=== PATIENT | female | born 1935 | race Caucasian/White ===

== ENCOUNTER 2018-04-28 12:56 | Outpatient (CLI) | payer MEDICARE, BC | END 2018-04-28 12:57 | disposition home or self-care (01) | LOC: BICMAMMO 12:56 | PROVIDERS: ATTEND Internal Medicine | DX: Z12.31 Encounter for screening mammogram for malignant neoplasm of breast (principal) | CPT/HCPCS: 77063; 77067 ==

== ENCOUNTER 2018-09-20 11:32 | Outpatient (CLI) | payer MEDICARE, BC ==
--- NOTE | 2018-09-20 12:22 | RAD ---
PA AND LATERAL CHEST: History: Dyspnea. Comparison: 01-15-16 FINDINGS: Heart size is within normal limits. There are atherosclerotic changes of the aorta. Pleural based sca rring in the right upper lobe is stable. Post-operative changes of both shoulders are seen. IMPRESSION: Chronic lung change. Stable exam. POS: TPC
== END 2018-09-20 11:33 | disposition home or self-care (01) ==
LOC: RAD 11:32
PROVIDERS: ATTEND Internal Medicine
DX: R06.00 Dyspnea, unspecified (principal)
CPT/HCPCS: 71046

== ENCOUNTER 2019-03-10 06:12 | Inpatient (IN) | payer MEDICARE, BC ==
[2019-03-10] MEDS ORDERED: Morphine 4 MG/ML VIAL ONE (06:38)
[2019-03-10] MEDS ORDERED: Ondansetron PF 4 MG/2 ML Vial ONE (06:38)
[2019-03-10 06:39] LABS: #Basophils 0.1 thou/uL (0.0-0.2); #Lymphocytes 1.5 thou/uL (1.20-3.40); #Monocytes 0.7 thou/uL (0.11-0.59); #Neutrophils 13.4 thou/uL (1.40-6.50); %Basophils 0.4 % (0.0-1.0); %Eosinophils 0.1 % (0.0-10.0); %Lymphocytes 9.5 % (21.0-51.0); %Monocytes 4.3 % (0.0-10.0); %Neutrophils 85.8 % (42.0-75.0); Hemoglobin 16.7 g/dL (12.0-16.0); Mean Corpuscular HGB CONC 32.8 g/dL (32.0-36.0); Mean Corpuscular Hemoglobin 28.6 pg (27.0-31.0); Mean Corpuscular Volume 87.3 fL (78.0-98.0); Mean Platelet Volume 5.7 fL (7.4-10.4); Platelet Count 290 thou/uL (130-400); RBC Distribution Width 12.3 % (11.5-14.5); Red Blood Cell (RBC) Count 5.84 mill/uL (4.20-5.40); White Blood Cell (WBC) Count 15.6 thou/uL (4.8-10.8)
[2019-03-10 06:57] LABS: ALT (SGPT) 10 U/L (8-55); AST (SGOT) 17 U/L (5-34); Albumin 4.8 g/dL (3.4-4.8); Alkaline Phosphatase 71 U/L (40-150); Anion Gap 17 mmol/L (10-20); BUN (Urea Nitrogen) 20 mg/dL (9.8-20.1); Bilirubin, Total 0.5 mg/dL (0.2-1.2); CK (CPK) 30 U/L (29-168); Calc. Creatinine Clearance 0 mL/min (70-130); Carbon Dioxide 27 mmol/L (23-31); Chloride 100 mmol/L (98-107); Estimated GFR-MDRD 64; Globulin 3.1 g/dL (2.4-3.5); Glucose 190 mg/dL (83-110); Lipase 26 U/L (8-78); Protein, Total 7.9 g/dL (6.0-8.3); Sodium 140 mmol/L (136-145)
--- NOTE | 2019-03-10 07:46 | CT ---
CT Abdomen Pelvis W Con: 03/10/2019 6:31 AM CLINICAL INFORMATION: Bilious vomiting COMPARISON: None. TECHNIQUE: Multiple contiguous axial images were obtained and a CT of the abdomen and pelvis with IV contrast. C oronal reformats were performed. FINDINGS: Lower Chest: within normal limits. Abdomen: Liver: within normal limits. Bile Ducts: Enlargement of the common bile duct and central intrahepatic biliary tree may be a reserv oir effect from prior cholecystectomy. The common bile duct measures 1.4 cm in greatest dimension. Gallbladder: Surgically absent Pancreas: within normal limits. Spleen: within normal limits. Adrenals: within normal limits. Kidneys: Nonobstructing 5 mm left renal calcification. No right renal abnormality. Pelvis: Reproductive Organs: Status post hysterectomy. Ureters: within normal limits. Bladder: within normal limits. Peritoneum: No free air. There is a small amount of free fluid in the pelvis. Bowel: Scattered diverticula in the colon. There is an anastomotic staple line in the sigmoid colon. The proximal small bowel loops are dilated up to 4.5 cm in size. There appears to be a transition point to decompressed small bowel loops in the right lower quadrant of the abdomen. Mesentery and Retroperitoneum: No enlarged mesenteric or retroperitoneal lymph nodes. Vessels: Atherosclerotic calcifications. Abdominal Wall: within normal limits. Bones: Degenerative changes in the spine. IMPRESSION: 1. Dilated small bowel loops with apparent transition point in the right upper quadrant of the abdome n. This may be secondary to a partial or complete small bowel obstruction. 2. Diverticulosis 3. Nonobstructing left renal calcification 4. Biliary dilatation may be a reservoir effect from prior cholecystectomy. Correlate with LFTs.
[2019-03-10] MEDS ORDERED: Lidocaine Viscous Sol 2% 15 ml UD Cup ONE (08:02)
[2019-03-10] MEDS ORDERED: Ondansetron ODT 4 MG TAB SL PRN (08:25)
[2019-03-10] MEDS ORDERED: Lactated Ringer's 1,000 ML IV SCH (08:25)
[2019-03-10] MEDS ORDERED: Ondansetron PF 4 MG/2 ML Vial IVP PRN ×2 (08:25→10:50)
[2019-03-10 08:31] LABS: Bilirubin Negative (Negative); Blood, Urine Negative (Negative); Clarity Clear (Clear); Glucose, Urine (Dipstick) Negative (Negative); Leukocyte Trace (Negative); Nitrite Negative (Negative); Protein, Urine (Dipstick) Negative (Neg-Trace); Urobilinogen 0.2 mg/dL (Less than 2)
[2019-03-10 08:40] LABS: Bacteria/HPF None Seen HPF (None Seen); Epithelial Cast None Seen LPF (None Seen); RBC/HPF 0-3 HPF (0-3); Squamous Epithelial 0-3 HPF (0-3); WBC/HPF 0-3 HPF (0-3)
--- NOTE | 2019-03-10 08:54 | RAD ---
EXAM: Single view of the abdomen HISTORY: NG tube placement COMPARISON: 05/13/2007 FINDINGS: Single view of the abdomen shows a nonspecific, nonobstructive bowel gas pattern. An NG tub e is seen in the left upper quadrant of the abdomen with contrast in the stomach. Contrast is also seen in both renal collecting systems from recent contrast examination. Cholecystectomy clips are see n. The bones are unremarkable. IMPRESSION: NG tube located in the stomach.
[2019-03-10] MEDS ORDERED: Morphine 2 MG/ML SYRINGE SLOW IVP PRN (10:50)
[2019-03-10] MEDS ORDERED: Sodium Chloride 0.65% Nasal 44 ML BOT EA NARE PRN (10:50)
[2019-03-10] MEDS ORDERED: hydrALAZINE 20 MG/ML VIAL SLOW IVP PRN (10:50)
[2019-03-10] MEDS ORDERED: Bisacodyl 10 MG SUPP PR PRN (10:50)
[2019-03-10] MEDS ORDERED: Acetaminophen 650 MG Suppository PR PRN (10:50)
[2019-03-10] MEDS ORDERED: Cepastat Lozenges 1 LOZ PO PRN (10:50)
[2019-03-10 11:16] VITALS: BMI 25.0
--- NOTE | 2019-03-10 12:37 | HP ---
PRIMARY CARE PHYSICIAN: Foster Toney MD REASON FOR ADMISSION: Small bowel obstruction. HISTORY OF PRESENT ILLNESS: An 83-year-old female with past medical history of hypertension, who was brought to [facility] with complaint of nausea, vomiting, abdominal pain. The patient reports that yesterday around 5:30, she had supper, subsequently she went to bahai. At bahai, she started having crampy abdominal pain. She was not feeling good. She returned home, and she had continuous crampy abdominal pain. She thought maybe she needs electrolytes and that is why she drank Gatorade. Around 12 midnight, she had vomiting, which was containing all yellowish material from Gatorade. She was still feeling nauseated. She was feeling abdominal distention, and she had continuous abdominal crampy pain. She had another vomiting around 2, and she was not able to sleep entire night because of abdominal pain and not feeling good. At 5 o'clock in the morning, the patient was having bilious vomiting. At that point, the patient's son took her to [facility]. The patient had abdominal x-ray and abdomen and pelvis CT scan, which showed partial small bowel obstruction. The patient was dehydrated. She was tachycardic. She was given IV fluid. After NG tube placed, the patient started feeling better. Her abdominal distention improved and her pain was also reduced. She was transferred to our hospital for admission. The patient had history of diverticulitis in the past and she required surgery. She also had a surgery for hernia repair. The patient does not pass any gas. She does not have any fever, chills, or UTI symptoms. REVIEW OF SYSTEMS: CONSTITUTIONAL: Negative for weight loss or gain, ability to conduct usual activities. SKIN: Negative for rash, itching. EYES: Negative for double vision, pain. ENT/MOUTH: Negative for nose bleeding, neck stiffness, pain, tenderness. CARDIOVASCULAR: Negative for palpitations, dyspnea on exertion, orthopnea. RESPIRATORY: Negative for shortness of breath, wheezing, cough, hemoptysis, fever or night sweats. GASTROINTESTINAL: Negative for poor appetite, abdominal pain, heartburn, nausea, vomiting, constipation, or diarrhea. GENITOURINARY: Negative for urgency, frequency, dysuria, nocturia. MUSCULOSKELETAL: Negative for pain, swelling. NEUROLOGIC/PSYCHIATRIC: Negative for anxiety, depression. ALLERGY/IMMUNOLOGIC: Negative for skin rash, bleeding tendency. Please see my HPI for pertinent positive and negative, except as mentioned in HPI. Additional information; the patient was so weak at home. She was not able to walk to the car and she was feeling exhausted. She was super tired when she was brought to emergency room. PAST MEDICAL HISTORY: Diverticulitis, required colon surgery; hypertension; history of benign brain tumor, required surgery. PAST SURGICAL HISTORY: Colon surgery, hernia repair, brain surgery, bilateral shoulder surgery, appendicectomy, cholecystectomy, tonsillectomy. PAST PSYCHIATRIC HISTORY: Reviewed and negative. SOCIAL HISTORY: The patient denies any tobacco, alcohol, or illicit drug abuse. She lives in [facility]. Her son is also nearby. FAMILY HISTORY: No strong family history of premature coronary artery disease, stroke, or cancer. ALLERGIES: ASPIRIN, NSAID. CURRENT HOME MEDICATIONS: Amlodipine 2.5 mg p.o. daily. EMERGENCY ROOM COURSE: The patient received IV fluid, lidocaine viscous, Zofran, morphine 4 mg. PHYSICAL EXAMINATION: VITAL SIGNS: On arrival, blood pressure 175/105, pulse 95, respiratory rate 18, temperature 97.5, saturation 96% on room air, weight 68 kg. GENERAL: The patient is currently alert, awake. No obvious acute distress. HEENT: Head; normocephalic and atraumatic. Eyes; pupils round, reactive to light. Extraocular muscles intact. ENT; dry mucous membranes. No oral lesion. No pharyngeal erythema. No exudate. NECK: Supple. No JVD. No thyromegaly. No carotid bruit. No jugular venous distention. Currently, the patient has NG tube with low intermittent suction. LUNGS: Clear to auscultation without any rhonchi or rales. CARDIAC: S1 and S2. Regular without any murmur. No gallop. No rub. ABDOMEN: The patient does have diffuse, vague, sore abdominal discomfort on deep palpation, but no guarding, no rigidity, no rebound. Bowel sound heard. No suprapubic tenderness. BACK: Unremarkable. No CVA tenderness. EXTREMITIES: Upper extremities, passive movement of all joints are normal lower. EXTREMITIES: No edema. Good distal pulsation. No calf tenderness. SKIN: No skin rash. HEMATOLOGICAL: No lymphadenopathy. NEUROLOGIC: Nonfocal examination. SIGNIFICANT LABORATORY DATA: CBC; WBC 15.6, hemoglobin 16.7, platelet 290. BMP; sodium 140, potassium 4.0, chloride 100, carbon dioxide 27, anion gap 17, BUN 20, creatinine 0.85, glucose 190, calcium 11.0, lactic acid 1.9. LFT; AST 17, ALT 10, alkaline phosphatase 71, albumin 4.8, lipase 26. Troponin I less than 0.010. Urinalysis unremarkable. IMAGING STUDIES: Abdomen and pelvis CT scan showing dilated small bowel loops with afferent transition point in right upper quadrant of the abdomen consistent with partial versus complete small bowel obstruction, diverticulosis, nonobstructive left renal calcification, biliary dilatation. Abdominal x-ray unremarkable. ASSESSMENT/PLAN: 1. Nausea, vomiting, abdominal pain, likely due to underlying partial/complete small bowel obstruction. 2. Volume depletion with dehydration. 3. Partial/complete small bowel obstruction. 4. Leukocytosis, likely due to stress response. 5. History of hypertension. 6. History of benign brain tumor, required surgery in the past. 7. History of diverticulitis, required colon surgery in the past. PLAN: A full admission to medical floor. We will keep her n.p.o. We will continue with IV fluid with hydration with Ringer lactate at 125 mL per hour, Pepcid 20 mg IV b.i.d., morphine 2 mg IV q.4 hourly p.r.n. for pain. Symptomatic treatment for nausea and vomiting with Zofran. General Surgery will be consulted. I notified Dr. Carmona and the patient will get small bowel x-ray. We will repeat labs tomorrow. Depending upon small-bowel x-ray and clinical course, we will advance diet slowly. DVT prophylaxis, Lovenox 40 mg subcu daily. GI prophylaxis, Pepcid 20 mg IV b.i.d. CODE STATUS: The patient is full code. The patient's son is surrogate decision maker. DISPOSITION PLAN: Based on clinical course. I have spoken with the patient as well as the patient's son on phone and updated the patient's plan of care. Job ID: [id number]
[2019-03-10] MEDS: Lactated Ringer's 1,000 ML IV SCH ×2 (13:13→19:45)
[2019-03-10] MEDS: Famotidine/PF 20 mg/2ml Vial SLOW IVP SCH (19:46)
--- NOTE | 2019-03-11 01:41 | CON ---
DATE OF CONSULTATION: 03/10/2019 REQUESTING PHYSICIAN: Vipin Esquivel MD HISTORY OF PRESENT ILLNESS: Ms. Graves is an 83-year-old woman with prior history of multiple abdominal surgeries. The patient presented to [facility] in [place] with complaint of multiple episodes of nausea bilious emesis associated with right upper quadrant abdominal pain. The patient reported some malaise. Her last bowel movement was yesterday and was formed. She denies any fevers or chills. was placed and patient underwent a CT scan of the abdomen and pelvis, which was reported to be suspicious for acute small bowel obstruction. The patient was transferred to [facility] in [place], [place]. At the time of my evaluation, she reports no abdominal pain. She is still having intermittent episodes of nausea, but has had no emesis since this admission. She denies any fevers or chills. PAST MEDICAL HISTORY: Significant for diverticulosis coli, essential hypertension, benign brain tumor. PAST SURGICAL HISTORY: Significant for sigmoidectomy with primary anastomosis, bilateral shoulder arthroplasties, appendectomy, cholecystectomy, incisional herniorrhaphy. SOCIAL HISTORY: The patient denies any cigarette smoking, ethanol, or illicit drug abuse. FAMILY HISTORY: Noncontributory for this patient's age. PREHOSPITAL MEDICATION: Amlodipine 2.5 mg p.o. daily. ALLERGIES: TO ASPIRIN AND NSAIDS. REVIEW OF SYSTEMS: Ten-point review of system is essentially unremarkable except as stated in the past medical history and chief complaint. PHYSICAL EXAMINATION: GENERAL: This reveals an 83-year-old normally developed woman, who is otherwise coherent and interactive and appears stated age. The patient is alert and oriented x3. She appears to be in no acute distress at the time of my evaluation. VITAL SIGNS: Include blood pressure 125/76, pulse is 82, respiratory rate is 20, temperature 98.3 degrees Fahrenheit, oxygen saturation is 94% on room air. HEENT: Reveals pupils are equal, round, and reactive to light and accommodation. She has no jugular venous distention noted. HEART: Reveals regular rate and rhythm. No murmurs or gallops auscultated. LUNGS: Clear to auscultation bilaterally. Her breathing is regular and nonlabored. ABDOMEN: Soft and nondistended. She has no abdominal tenderness to palpation. Liver and spleen are nonpalpable below costal margin. Nasogastric tube returns scant nonbilious gastric effluent. NEUROLOGIC: Reveals no focal deficits present. LABORATORY FINDINGS: Today includes a CBC with 15,600 white blood cells, hemoglobin and hematocrit are 16.7 and 51.0 respectively. The platelet count is 290,000. Metabolic profile; sodium 140, potassium is 4.0, chloride is 100, bicarb is 27, BUN 20, creatinine 0.85, glucose 190, total bilirubin 0.5, AST and ALT normal at 17 and 10 respectively. Serum lipase is also normal at 26. I reviewed the CT scan of the abdomen and pelvis, which revealed multiple distended loops of proximal small bowel with transition zone in the right upper quadrant. There is, however, stool and gas in the rectum. Small bowel follow-through was also ordered by myself and at 2 hours, the contrast is already in the rectum. IMPRESSION: 1. Now resolved abdominal pain. 2. Nausea and bilious emesis, likely secondary to gastroenteritis. Although the patient has significant risk factors for adhesions and therefore partial or complete small-bowel obstruction, I do not think that her present symptoms are secondary to bowel obstruction. RECOMMENDATIONS: Nasogastric tube is discontinued. The patient will be started on ice chips and we will consider clear liquid diet with next bowel movements. Above findings and plan discussed with the patient and her adult physician son. They both indicated understanding of information given. I have answered her questions. Job ID: [id number]
[2019-03-11] MEDS: Lactated Ringer's 1,000 ML IV SCH ×2 (03:21→11:15)
[2019-03-11 06:27] LABS: #Eosinphils 0.1 thou/uL (0.0-0.7); #Lymphocytes 2.7 thou/uL (1.20-3.40); #Monocytes 0.9 thou/uL (0.11-0.59); #Neutrophils 5.7 thou/uL (1.40-6.50); %Basophils 0.3 % (0.0-1.0); %Eosinophils 1.2 % (0.0-10.0); %Lymphocytes 28.5 % (21.0-51.0); %Monocytes 9.7 % (0.0-10.0); %Neutrophils 60.3 % (42.0-75.0); Hemoglobin 13.8 g/dL (12.0-16.0); Mean Corpuscular HGB CONC 33.4 g/dL (32.0-36.0); Mean Corpuscular Hemoglobin 29.3 pg (27.0-31.0); Mean Corpuscular Volume 87.6 fL (78.0-98.0); Mean Platelet Volume 6.9 fL (7.4-10.4); Platelet Count 245 thou/uL (130-400); RBC Distribution Width 11.5 % (11.5-14.5); Red Blood Cell (RBC) Count 4.72 mill/uL (4.20-5.40); White Blood Cell (WBC) Count 9.4 thou/uL (4.8-10.8)
[2019-03-11 06:58] LABS: ALT (SGPT) Less than 7 U/L (8-55); AST (SGOT) 22 U/L (5-34); Albumin 3.7 g/dL (3.4-4.8); Alkaline Phosphatase 56 U/L (40-150); Anion Gap 11 mmol/L (10-20); BUN (Urea Nitrogen) 12 mg/dL (9.8-20.1); Bilirubin, Total 0.5 mg/dL (0.2-1.2); Calc. Creatinine Clearance 72 mL/min (70-130); Calcium 9.5 mg/dL (7.8-10.44); Carbon Dioxide 27 mmol/L (23-31); Chloride 106 mmol/L (98-107); Estimated GFR-MDRD 78; Globulin 2.3 g/dL (2.4-3.5); Glucose 88 mg/dL (83-110); Sodium 140 mmol/L (136-145)
--- NOTE | 2019-03-11 07:17 | RAD ---
EXAM: Small bowel follow-through HISTORY: Small bowel obstruction COMPARISON: CT abdomen/pelvis 03/10/2019 FINDINGS: A Gastrografin small bowel follow-through was performed. An NG tube is seen in the stomach. The small bowel loops are normal in caliber without distention. Contrast passes through the small bowel loops to the colon by 2.5 hours. IMPRESSION: No evidence of complete bowel obstruction
[2019-03-11] MEDS ORDERED: Enoxaparin Sodium 40 MG/0.4 ML SYRINGE SC SCH (09:00)
[2019-03-11] MEDS: Famotidine/PF 20 mg/2ml Vial SLOW IVP SCH (09:23)
--- NOTE | 2019-03-11 15:38 | PRG ---
DATE OF SERVICE: 03/11/2019 Ms. Graves, 83-year-old woman admitted with what was suspected to be small bowel obstruction causing multiple episodes of nausea and vomiting associated with abdominal pain. Workup included a small bowel follow-through, which revealed no evidence of bowel obstruction. Today, the patient has recorded multiple bowel movements and is passing flatus. She is tolerating clear liquid diet. I advanced her diet to regular this morning after evaluation. She has remained hemodynamically stable and afebrile. Abdominal examination; abdomen is soft, nontender, nondistended. She clearly has resolved what I suspect to be gastroenteritis. General Surgery will sign off and be available to re-evaluate the patient on demand. I recommend that the patient to be discharged at the discretion of primary service. Job ID: [id number]
[2019-03-11 16:16] VITALS: BP 159/82; TEMP 98.1
--- NOTE | 2019-03-12 04:43 | DIS ---
DATE OF ADMISSION: 03/10/2019 DATE OF DISCHARGE: 03/11/2019 DISCHARGE DIAGNOSES: 1. Partial small bowel obstruction, suspected, resolved with conservative management. 2. Nausea and vomiting secondary to #1, resolved. 3. Gastroenteritis, presumed infectious, resolving. 4. Dehydration, resolved. 5. Hypertension, stable. CONSULTATIONS: Dr. Carmona with General Surgery Service. PERTINENT LAB AND X-RAY FINDINGS: Calcium ranged between 9.5 to 11.0. LFTs within normal limits. Lipase 26. CBC showed a white blood cell count ranging between 9.4 to 15.6, hemoglobin ranging between 13.8 to 16.7. IMAGING: CT of the abdomen and pelvis dated 03/10/2019 showed dilated small bowel loops with transition point in the right upper quadrant. Nonobstructive left renal calculus noted. Diverticulosis. Abdominal radiographs dated 03/10/2019 showed nonobstructive bowel gas pattern with NG tube in the left upper quadrant. Small bowel follow-through dated 03/10/2019 showed no evidence of bowel obstruction. HOSPITAL COURSE: The patient was admitted to the medical floor after initially presenting with nausea, vomiting, and abdominal pain. The patient underwent general evaluation including CT imaging of the abdomen and pelvis showing evidence of dilated small bowel loops concerning for partial small bowel obstruction. The patient was placed on NG tube to low intermittent wall suctioning and kept n.p.o. The patient rapidly clinically improved with NG tube placement with resolution of nausea and vomiting. The patient was managed conservatively with IV fluids due to dehydration and clinically stabilized with supportive management. The patient was evaluated by the General Surgery Service with recommendations for conservative management. At which point, the patient underwent small bowel follow-through and after 24 hours, no evidence of obstructive process was identified and the patient was passing large quantities of stool and contrast. The patient tolerated regular oral intake with stable vital signs. I have examined the patient at the time of discharge and discussed followup instructions. The patient verbalized understanding and agreement ready for discharge on 03/11/2019. DISCHARGE MEDICATION: Norvasc 2.5 mg p.o. daily. FOLLOWUP: The patient may follow up with her primary care provider, Dr. Suraj Toney within 7 days of discharge. CONDITION ON DISCHARGE: Stable. ACTIVITY: Ad-andrew. DIET: Regular. CODE STATUS: Full. DISPOSITION: To home, 03/11/2019. Job ID: [id number]
== END 2019-03-11 16:10 | disposition home or self-care (01) | DRG 389 ==
LOC: SCSER 06:12 → T4-B 08:25 → OBSVTOIN 10:50
PROVIDERS: ADMIT Internal Medicine; ATTEND Internal Medicine
DX: K56.600 Partial intestinal obstruction, unspecified as to cause (principal); A09 Infectious gastroenteritis and colitis, unspecified; E86.0 Dehydration; E86.9 Volume depletion, unspecified; Z96.612 Presence of left artificial shoulder joint; Z96.611 Presence of right artificial shoulder joint; Z90.49 Acquired absence of other specified parts of digestive tract; Z90.89 Acquired absence of other organs; Z88.8 Allergy status to other drugs, medicaments and biological substances
CPT/HCPCS: 36415; 74018; 74177; 74250; 80053; 81003; 81015; 82550; 83605; 83690; 84484; 85025; 93005; 96361; 96374; J1650; J2270; J2405; S0028